=== PATIENT | female | born 2000 | race Caucasian/White ===

== ENCOUNTER 2022-02-25 12:59 | Emergency (ER) | payer BC ==
[2022-02-25] MEDS ORDERED: Ondansetron 4 MG/2 ML SDV IVPUSH ONE (13:53)
[2022-02-25] MEDS ORDERED: Ketorolac 30 MG/ML SDV IVPUSH ONE (13:53)
[2022-02-25] MEDS ORDERED: Sodium Chloride 0.9% 1,000 ML IV ONE (13:53)
[2022-02-25] MEDS ORDERED: cefTRIAXone 1 GM in Sodium Chloride 0.9% 50 ML IV ONE (14:32)
[2022-02-25 14:48] LABS: CARBON DIOXIDE,CO2 25.3 mmol/L (21.0-32.0); POTASSIUM,K 3.8 mmol/L (3.5-5.1)
== END 2022-02-25 15:25 | disposition home or self-care (01) ==
LOC: MW.ED 12:59
DX: N12 Tubulo-interstitial nephritis, not specified as acute or chronic (principal); Z88.2 Allergy status to sulfonamides; Z86.16 Personal history of COVID-19
CPT/HCPCS: 36415; 80053; 81001; 81025; 85025; 87086; 96361; 96365; 96375; 99284; J0696; J1885; J2405; J7030; 87088; 87186; 99283

== ENCOUNTER 2022-02-26 09:33 | Emergency (ER) | payer BC ==
[2022-02-26] MEDS ORDERED: LORazepam 2 MG/ML SDV IVPUSH ONE (10:11)
[2022-02-26] MEDS ORDERED: Sodium Chloride 0.9% 1,000 ML IV ONE ×2 (10:11→12:21)
[2022-02-26 11:01] LABS: CARBON DIOXIDE,CO2 25.9 mmol/L (21.0-32.0); POTASSIUM,K 3.6 mmol/L (3.5-5.1)
[2022-02-26] MEDS ORDERED: cefTRIAXone 1 GM in Sodium Chloride 0.9% 50 ML IV STA (11:15)
[2022-02-26] MEDS ORDERED: Sodium Chloride 0.9% 10 ML Syringe FLUSH PRN (12:21)
[2022-02-26] MEDS ORDERED: Sodium Chloride 0.9% 2.5 ML Syringe FLUSH PRN (12:21)
== END 2022-02-26 13:21 | disposition home or self-care (01) ==
LOC: MW.ED 09:33
DX: N39.0 Urinary tract infection, site not specified (principal); E86.0 Dehydration; R41.0 Disorientation, unspecified; T36.8X5A Adverse effect of other systemic antibiotics, initial encounter; Z88.2 Allergy status to sulfonamides; Z79.899 Other long term (current) drug therapy; Z86.16 Personal history of COVID-19
CPT/HCPCS: 36415; 80053; 83605; 85025; 87040; 96361; 96365; 96375; 99284; J0696; J2060; J7030